=== PATIENT | male | born 1950 | race Caucasian/White ===

== ENCOUNTER → 2022-11-17 | Outpatient (CLI) | payer MEDICARE, OTHER ==
[~2022-11-17] MED LIST: GUIATUSS AC PO; LEVOFLOXACIN500 MG PO
== END | disposition home or self-care (01) ==
LOC: RESCLI 10:58
PROVIDERS: ATTEND Internal Medicine
DX: I82.401 Acute embolism and thrombosis of unspecified deep veins of right lower extremity (principal); E78.5 Hyperlipidemia, unspecified; G45.9 Transient cerebral ischemic attack, unspecified; M35.3 Polymyalgia rheumatica; E63.9 Nutritional deficiency, unspecified; Z98.890 Other specified postprocedural states; Z79.01 Long term (current) use of anticoagulants; Z79.899 Other long term (current) drug therapy

== ENCOUNTER → 2023-11-21 | Outpatient (CLI) | payer MEDICARE, OTHER | END | disposition home or self-care (01) | LOC: RESCLI 13:57 | PROVIDERS: ATTEND Internal Medicine | DX: G45.9 Transient cerebral ischemic attack, unspecified (principal); M35.3 Polymyalgia rheumatica; I82.401 Acute embolism and thrombosis of unspecified deep veins of right lower extremity; K21.9 Gastro-esophageal reflux disease without esophagitis; I48.91 Unspecified atrial fibrillation; I26.99 Other pulmonary embolism without acute cor pulmonale; E78.5 Hyperlipidemia, unspecified; Z79.899 Other long term (current) drug therapy; Z98.890 Other specified postprocedural states ==

== ENCOUNTER → 2024-11-12 | Outpatient (CLI) | payer MEDICARE, OTHER | END | disposition home or self-care (01) | LOC: RESCLI 09:20 | PROVIDERS: ATTEND Internal Medicine | DX: I48.92 Unspecified atrial flutter (principal); M35.3 Polymyalgia rheumatica; G45.9 Transient cerebral ischemic attack, unspecified; I48.91 Unspecified atrial fibrillation; I50.9 Heart failure, unspecified; Z79.899 Other long term (current) drug therapy; Z88.8 Allergy status to other drugs, medicaments and biological substances ==

== ENCOUNTER → 2025-06-02 | Outpatient (CLI) | payer MEDICARE, OTHER | LOC: RAD 11:56 | PROVIDERS: ATTEND Nurse Practitioner | DX: J98.6 Disorders of diaphragm (principal); R09.89 Other specified symptoms and signs involving the circulatory and respiratory systems ==